=== PATIENT | female | born 1950 | race Caucasian/White ===

== ENCOUNTER 2021-02-01 08:49 | Inpatient (IN) | payer MEDICARE, OTHER ==
[~2021-02-01] VITALS: Ht 162.5 cm; Wt 77.1 kg
[2021-02-01] VITALS (8 sets, daily range): BP systolic 100–156; BP diastolic 52–73
[2021-02-01 09:16] LABS: BASO % 0.2 % (0.0-1.0); EOS % 0.4 % (1.0-4.0); HEMATOCRIT 42.8 % (37.0-47.0); LYMPH # 0.9 10*3/uL (1.3-4.4); LYMPH % 8.5 % (27.0-41.0); MEAN CELL VOLUME 94.9 fl (81.0-99.0); MEAN CORPUSCULAR HGB CONC 32.7 g/dl (33.0-37.0); MEAN PLATELET VOLUME 10.2 fl (9.6-12.3); MONO # 0.4 10*3/uL (0.1-1.0); MONO % 3.3 % (3.0-9.0); NEUT # 9.4 10*3/uL (2.3-7.9); NEUT % 87.3 % (47.0-73.0); PLATELET COUNT AUTOMATED 228 10*3/uL (130-400); RED BLOOD COUNT 4.51 10*6/uL (4.10-5.10); WHITE BLOOD COUNT 10.7 10*3/uL (4.8-10.8)
[2021-02-01 09:27] LABS: ACT PARTIAL THROMBO TIME 23.8 SECONDS (20.0-32.1)
[2021-02-01 09:33] LABS: ALKALINE PHOSPHATASE 61 U/L (45-117); BUN 19 mg/dl (7-24); CHLORIDE 112 mmol/L (98-107); CREATININE 0.77 mg/dL (0.55-1.02); POTASSIUM 3.4 mmol/L (3.5-5.1); SGOT/AST 95 IU/L (3-35); SGPT/ALT 90 U/L (12-78); SODIUM 142 mmol/L (136-145); TOTAL PROTEIN 7.2 gm/dL (6.4-8.2)
[2021-02-01 09:34] LABS: LIPASE 18790 U/L (73-393); TROPONIN I < 0.015 ng/ml (<0.045)
[2021-02-01] MEDS ORDERED: METFORMIN HYDR750 MG PO (10:38)
[2021-02-01] MEDS ORDERED: LIPITOR40 MG PO (10:39)
[2021-02-01 10:48] LABS: BILIRUBIN Negative (Negative); BLOOD Negative (Negative); CLARITY Clear (Clear); COLOR Yellow (Yellow); GLUCOSE Negative (Negative); KETONE Negative (Negative); LEUKO ESTERASE Trace (Negative); NITRITE Negative (Negative)
[2021-02-01] MEDS ORDERED: LOSARTAN POTASS25 M1 PO (10:48)
[2021-02-01 10:54] LABS: RBC 0-2 rbc/hpf (0-2)
[2021-02-01 10:55] LABS: BACTERIA TRACE; MUCOUS TRACE
[2021-02-02] VITALS (14 sets, daily range): BP systolic 73–105; BP diastolic 42–65
[2021-02-02 02:34] LABS: ABG BASE EXCESS -4.5 mmol/L (-2.0-2.0); ARTERIAL BLOOD GAS PH 7.43 (7.35-7.45); ARTERIAL BLOOD GAS PO2 60.8 (80-90)
[2021-02-02 02:47] LABS: HEMATOCRIT 45.8 % (37.0-47.0); MEAN CELL VOLUME 93.9 fl (81.0-99.0); MEAN CORPUSCULAR HGB 30.5 pg (27.0-31.0); MEAN CORPUSCULAR HGB CONC 32.5 g/dl (33.0-37.0); MEAN PLATELET VOLUME 10.8 fl (9.6-12.3); PLATELET COUNT AUTOMATED 222 10*3/uL (130-400); RED BLOOD COUNT 4.88 10*6/uL (4.10-5.10); RED CELL DISTRI WIDTH 14.5 % (0-14.5)
[2021-02-02 03:03] LABS: ALBUMIN 2.9 gm/dl (3.1-4.5); CREATININE 1.42 mg/dL (0.55-1.02); POTASSIUM 3.9 mmol/L (3.5-5.1); TOTAL PROTEIN 6.2 gm/dL (6.4-8.2)
[2021-02-02 03:14] LABS: PLATELET SUFFICIENCY NORMAL (NORMAL); TOTAL CELLS COUNTED 100 #CELLS
[2021-02-02 03:16] LABS: THYROID STIM HORMONE (HS) 1.1 uIU/ml (0.358-4.75)
[2021-02-02 06:48] LABS: VITAMIN D, 25-HYDROXY 44.7 ng/mL (30-100)
== END 2021-02-02 20:57 | disposition short-term general hospital (02) | DRG 871 ==
LOC: ED 08:49 → EDHOLD 09:48 → ICCU 09:48 → 5E 09:48 → ICCU 02-02 05:17
PROVIDERS: Emergency Medicine; Hospitalist; ADMIT Internal Medicine; ATTEND Internal Medicine
PROC: 0FF98ZZ Fragmentation in Common Bile Duct, Via Natural or Artificial Opening Endoscopic (ICD-10-PCS; principal; 2021-02-02)
PROC: 05HY33Z Insertion of Infusion Device into Upper Vein, Percutaneous Approach (ICD-10-PCS; 2021-02-02)
PROC: B54MZZA Ultrasonography of Right Upper Extremity Veins, Guidance (ICD-10-PCS; 2021-02-02)
DX: A41.9 Sepsis, unspecified organism (principal); N17.0 Acute kidney failure with tubular necrosis; K85.10 Biliary acute pancreatitis without necrosis or infection; K83.09 Other cholangitis; J98.11 Atelectasis; K29.70 Gastritis, unspecified, without bleeding; R65.20 Severe sepsis without septic shock; I10 Essential (primary) hypertension; E11.65 Type 2 diabetes mellitus with hyperglycemia; K80.20 Calculus of gallbladder without cholecystitis without obstruction; E78.5 Hyperlipidemia, unspecified; K80.50 Calculus of bile duct without cholangitis or cholecystitis without obstruction; Z88.0 Allergy status to penicillin; Z79.899 Other long term (current) drug therapy; Z79.84 Long term (current) use of oral hypoglycemic drugs